=== PATIENT | female | born 1995 | race Caucasian/White ===

== ENCOUNTER 2017-11-29 06:07 | Inpatient (IN) ==
[2017-11-29] MEDS ORDERED: Famotidine 20 MG/2 ML VIAL IVP PRN (06:18)
[2017-11-29] MEDS ORDERED: Naloxone 0.4 MG/ML INJ IVP PRN (06:18)
[2017-11-29] MEDS ORDERED: *HR* Nalbuphine 20 MG/ML AMPUL IVP PRN (06:18)
[2017-11-29] MEDS ORDERED: Metoclopramide 10 MG/2 ML VIAL IVP PRN (06:18)
[2017-11-29] MEDS ORDERED: miSOPROStol 25 MCG TABLET VG PRN (06:20)
--- NOTE | 2017-11-29 06:26 | OB/GYN History & Physical ---
Date of Encounter: 11/29/17 Time of Encounter: 06:45 Assessment and Plan (1) 40 weeks gestation of Current visit: Yes Status: Acute Plan: - admit to L&D for IOL - apply toco, FHR baseline= 130 - obtain CBC, drug screen - Begin induction with Cytotec - anticipate normal - give rhogam after delivery (2) Rh negative status during in third trimester, antepartum Current visit: Yes Status: Acute History of Present Illness Chief complaint: induction of labor HPI: Ms. Lowery is a 22 year old female at 40+3 weeks presented to labor and delivery for induction of labor 2/2 borderline low CARMEN. Patient's is complicated by obesity. Reports active movement. Patient denies vaginal bleeding, contractions, leakage of fluids. Admits to some N/V this morning and vision changes yesterday while cleaning. Denies SNIDER,dysuria. Patient follows up with the midwives and Dr. Diez. PNL: Blood type A-. GBS neg, RI, HBsAG neg, HIV neg. RPR neg. Past Med Surg Social Fam HX - Past Medical History Source: patient, old records reviewed Medical history: no medical history Psychiatric history: no psych history - Past Surgical History Surgical History: other (laproscopic for endometritis, wisdom teeth) - Social History Smoking Status: Never smoker Smokeless Tobacco Status: No Alcohol use: none Drug use: none - Family History Mother Living Status: Still Living Obstetrical History - Pregnancies : 1 Para: 0 Term: 0 : 0 Ab's: 0 Livin - History/Complications History/Complications: n/a Medications and Allergies Kgz313/Iron Fumarate/FA/Dss [ 19 Tablet] 1 tab PO DAILY 11/29/17 [ History] 3 Allergy/AdvReac Type Severity Reaction Status Date / Time No Known Allergies Allergy Verified 11/29/17 06:43 Review of System OB All systems PM: reviewed and no additional remarkable complaints except as stated Exam - Vital Signs Vital signs: BP: 132/77, HR: 88, Temp: 97.7 - Constitutional Constitutional: well developed, well nourished, no acute distress - HEENT HEENT: EOMI - Neck Neck exam: full ROM - Lungs Respiratory exam: CTAB - Cardiovascular Cardiovascular exam: RRR - Abdomen Abdomen: Present: bowel sounds normal, non tender - Extremities Extremities exam: pedal edema (+1) - Vagina Vagina: Present: normal moisture - Cervix Dilation: 2 (per nursing) Effacement: 80 (per nursing) Station: -1 - Uterus Uterus exam: Present: normal size Results Result Diagrams: 11/29/17 06:22 All other labs normal. - VTE Reasons for not Prescribing Prophylaxis: Treatment not Indicated - Low risk for VTE
[2017-11-29 06:39] LABS: Basophils % 0.4 %; Eosinophils # 0.1 K/mcL (0.0-0.6); Eosinophils % 1.2 %; Hematocrit 33.2 % (35.3-44.9); Hemoglobin 10.3 g/dL (11.5-15.4); Immature Granulocytes % 0.6 % (0-4); Lymphocytes # 2.1 K/mcL (0.6-4.6); Lymphocytes % 19.5 %; Mean Corpuscular Hemoglobin 23.3 pg (28.0-33.3); Mean Corpuscular Volume 74.9 fL (83.0-100.0); Mean Platelet Volume 11.3 fL (9.4-12.4); Monocytes # 1.2 K/mcL (0.0-1.3); Monocytes % 11.4 %; Neutrophils # 7.1 K/mcL (1.6-8.9); Platelet Count 290 K/mcL (140-400); Red Blood Count 4.43 M/mcL (3.82-4.97); Red Cell Distribution Width 16.3 % (11.5-14.5); Segmented Neutrophils % 66.9 %
[2017-11-29] MEDS: Ringers Solution, Lactated 1,000 ML IVC SCH ×2 (07:54→15:49)
[2017-11-29 08:11] LABS: Amphetamine Screen,Urine Negative ng/mL (Cutoff=1000); Barbiturate Screen,Urine Negative ng/mL (Cutoff=200); Benzodiazepines Screen,Urine Negative ng/mL (Cutoff=200); Cannabinoid Screen,Urine Negative ng/mL (Cutoff = 50); Cocaine Screen,Urine Negative ng/mL (Cutoff= 300); Opiate Screen,Urine Negative ng/mL (Cutoff=300); Phencyclidine Screen,Urine Negative ng/mL (Cutoff=25)
--- NOTE | 2017-11-29 10:05 | OB Labor Progress Note ---
Date of Encounter: 11/29/17 Time of Encounter: 09:59 Labor Progress Note - Subjective Subjective: Pt resting comfortably. - Cervix Cervix: 1-2/80/-1 - Heart Tones Heart Tones: Category I - Riva Riva: irregular - Interventions Interventions: Gonzalez balloon placed in cervix using sterile technique. Pt tolerated well. Balloon inflated with 30ml sterile water. - Plan Plan: Continue to monitor. Epidural when requested. Anticipate .
[2017-11-29] MEDS ORDERED: Oxytocin 20 units/ LR 1000 mL 20 UNIT/1,000 ML BAG IVC SCH (13:00)
--- NOTE | 2017-11-29 15:44 | OB Labor Progress Note ---
Date of Encounter: 11/29/17 Time of Encounter: 15:42 Labor Progress Note - Subjective Subjective: Pt reports mild discomfort with contractions. - Cervix Cervix: 4-5/80/-1 - Heart Tones Heart Tones: Category I - Zarate Zarate: irregular - Interventions Interventions: AROM performed. No fluid return noted. IUPC and FSE placed successfully. - Plan Plan: Continue to monitor. Allow pt to position for comfort. Anticipate .
[2017-11-29] MEDS ORDERED: 0.9 % Sodium Chloride 1,000 ML ONE (16:24)
--- NOTE | 2017-11-29 17:54 | OB Labor Progress Note ---
Date of Encounter: 11/29/17 Time of Encounter: 17:50 Labor Progress Note - Subjective Subjective: Pt with moderate discomfort with contractions. - Heart Tones Heart Tones: Category II, variable decelerations noted. - [place]: 2-3 minutes - Interventions Interventions: Amnioinfusion started - Plan Plan: Continue amnioinfusion. Plan to restart pitocin once FHT reassuring for 30 minutes. Epidural when requested. Anticipate .
--- NOTE | 2017-11-29 19:06 | OB Labor Progress Note ---
Date of Encounter: 11/29/17 Time of Encounter: 19:04 Labor Progress Note - Subjective Subjective: Pt desires epidural for pain. - Cervix Cervix: 5/80/-1 - Heart Tones Heart Tones: Occassional variabe decels noted. - Sarben Sarben: 3-4 minutes - Plan Plan: Epidural now. Continue to titrate pitocin. Anticipate .
[2017-11-29] MEDS ORDERED: Epidural Premix (fent/bupiv) 110 ML EP SCH (19:15)
[2017-11-29] MEDS ORDERED: Epidural Premix (fent/bupiv) 110 ML EP ONE (19:20)
--- NOTE | 2017-11-29 20:04 | Anesthesia Evaluation PreOp ---
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 Any Significant HX Other Medical History: Denies Any Significant HX Anesthesia History: No Prior Anesthetic Complications : Yes Test: Positive Alcohol Use: none Drug use: none Medications and Allergies Ewd478/Iron Fumarate/FA/Dss [ 19 Tablet] 1 tab PO DAILY 11/29/17 [ History] 3 Allergy/AdvReac Type Severity Reaction Status Date / Time No Known Allergies Allergy Verified 11/29/17 06:43 - Meds/Allergy Pre-op Review Medications Reviewed: Yes Allergies Reviewed: Yes Beta Blockers on Current Med List: No Anesthesia Results - Labs 11/29/17 06:22 Anesthesia Exam Height: 63 Weight: 188LBS Pain Scale: 6 - HEENT Pupil (Motor): Pupils equal Mallampati: II Teeth: Normal Oral Opening: Greater than 3 - 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
--- NOTE | 2017-11-29 20:07 | Anesthesia Procedures ---
Date of Encounter: 11/29/17 Time of Encounter: 19:37 Procedures: Anesthesia - Epidural/Spinal Patient ID/Chart reviewed: Yes Patient examined: Yes OB Eval: : 1 OB Eval: Hx Para: 0 OB Eval: Dilated at (cm): 5 OB Eval: Contractions: Non-stressed pattern Consent Obtained: Yes Supplemental Oxygen: None/Room Air Site Prep: Aseptic Technique, Sterile prep and drape, Povidone-Iodine 1% Patient position: upright Amount of Local Anesthetic used: 3 Touhy Needle Gauge: 18 Touhy Needle Depth (cm): 7 Catheter Depth at Skin (cm): 12 Test Dose (1.5% Lido + Epi): Volume given (mls): 3 Test Dose Result: Negative Loading Dose: Other: 10ml Loading Dose Administered: Thru Catheter Infusion Med: 0.125% Bupivacaine w/ 2 mcg/ml Fentanyl Infusion Rate (mls/hr): [address]: Tegaderm, Tape Interspace Used: L4-L5 Loss of Resistance (DEBORAH): Yes Blood: No CSF: No Paresthesia: No Vitals + FHT's: stable throughout see nursing notes
[2017-11-29] MEDS ORDERED: ROPIVACAINE HCL/PF 0.5% 30 ML VIAL ONE (22:17)
[2017-11-29] MEDS ORDERED: EPHEDrine 50 MG/ML VIAL ONE (23:06)
[2017-11-30] MEDS ORDERED: Ondansetron 4 MG/2 ML VIAL ONE (00:24)
[2017-11-30] MEDS ORDERED: Ondansetron 4 MG/2 ML VIAL IVP PRN (00:24)
[2017-11-30] MEDS ORDERED: Epidural Premix (fent/bupiv) 110 ML EP ONE (02:35)
--- NOTE | 2017-11-30 03:44 | OB/GYN Procedure Note ---
Delivery - Delivery Date: 11/30/17 Provider: Marianne Nuñez Intrapartum events: meconium (terminal meconium) Delivery induction: trevino, misoprostol Delivery augmentation: rupture of membranes, pitocin Delivery monitor: internal FHT, internal uterine Anesthesia: epidural Estimated Blood Loss: 50 - Infant (s) A Infant Delivery Date: 11/30/17 Infant Delivery Time: 03:13 Presentation: vertex Position: ASHLEY Route of delivery: Gender: Male Pounds: 7 Ounces: 2 Weight Gram: 3.24 kg at 1 minute: 8 at 5 mins: 9 Shoulder Dystocia: not encountered Specimens collected: cord blood Placenta: spontaneous Cord: 3 umbilical vessels - Repair Episiotomy: none Laceration Description: None - Complications Delivery complications: meconium (terminal) Delivery comments: Pt progressed to complete dilation. She pushed intermittently due to FHT decelerations with pushing. Dr. James called due to decelerations. She pushed effectively to over intact perineum for viable male "Katy" weighing 7lbs 2 oz with apgars 8 at one minute and 9 at five minutes. After pulsations ceased the cord was clamped and cut and the placenta delivered spontaneous and intact. Meconium was noted at the time of delivery. No nuchal and no shoulder dystocia. Dr. James was in attendance for procedure. No repair needed. EBL 50ml. Mother and baby stable in kangaroo care following delivery. - Disposition Mom disposition: stable in LDR [place] disposition: stable in LDR
[2017-11-30] MEDS ORDERED: Acetaminophen 325 MG TABLET PO PRN (05:42)
[2017-11-30] MEDS ORDERED: Oxytocin 20 units/ LR 1000 mL 20 UNIT/1,000 ML BAG IVC SCH (05:42)
[2017-11-30] MEDS ORDERED: Lanolin 7 G OINT...G. TP PRN (05:42)
[2017-11-30] MEDS ORDERED: Rho Immune Globulin 1,500 UNIT SYRINGE IM PRN (05:42)
[2017-11-30] MEDS ORDERED: Measles/Mumps/Rubella Vacc 0.5 ML VIAL SQ PRN (05:42)
[2017-11-30] MEDS ORDERED: Benzocaine/Menthol 56 GM AEROSOL SPRAY TP PRN (05:42)
[2017-11-30] MEDS: Ibuprofen 600 MG TABLET PO PRN ×2 (07:16→19:27)
[2017-11-30] MEDS: Prenatal Vit/FA 1 EACH TABLET PO SCH (08:13)
[2017-12-01] MEDS: Ibuprofen 600 MG TABLET PO PRN (06:42)
[2017-12-01] MEDS: Prenatal Vit/FA 1 EACH TABLET PO SCH (07:52)
[2017-12-01 08:07] VITALS: BP 101/66
--- NOTE | 2017-12-01 08:56 | Discharge Summary ---
Date of Encounter: 12/01/17 Time of Encounter: 08:53 - Discharge Diagnosis (1) Rh negative status during in third trimester, antepartum Priority: Secondary Status: Acute (2) Vaginal delivery Priority: Primary Status: Acute Comments: Pt meeting all milestones. She reports some mild uterine cramping. No other complaints. - Discharge Medications Prescriptions: Ibuprofen [Motrin] 600 mg PO Q6HR PRN #30 tablet PRN Reason: Cramping Breast Pump [BREAST PUMP] 1 each .ROUTE AD #1 each Docusate [Colace] 100 mg PO BID #30 capsule Home Medications: Dyg301/Iron Fumarate/FA/Dss [ 19 Tablet] 1 tab PO DAILY 11/29/17 [ History] Benzocaine/Menthol [place] [Dermoplast [place]] 1 appl TP QID PRN aerosol 12/01/17 [Rx] Breast Pump [BREAST PUMP] 1 each .ROUTE AD #1 each 12/01/17 [Rx] Docusate [Colace] 100 mg PO BID #30 capsule 12/01/17 [Rx] Ibuprofen [Motrin] 600 mg PO Q6HR PRN #30 tablet 12/01/17 [Rx] Lanolin [Lansinoh] 1 appl TP Q4HR PRN oint...g. 12/01/17 [Rx] Allergies/Adverse Reactions: 3 Allergy/AdvReac Type Severity Reaction Status Date / Time No Known Allergies Allergy Verified 11/29/17 06:43 Data Procedures and tests throughout hospitalization: Laboratory Tests 11/29/17 11/29/17 11/30/17 06:22 06:22 03:54 WBC 10.7 RBC 4.43 Hgb 10.3 L Hct 33.2 L MCV 74.9 L MCH 23.3 L MCHC 31.0 L RDW 16.3 H Plt Count 290 MPV 11.3 Immature Gran % 0.6 Seg Neutrophils % 66.9 Lymphocytes % 19.5 Monocytes % 11.4 Eosinophils % 1.2 Basophils % 0.4 Neutrophils # 7.1 Lymphocytes # 2.1 Monocytes # 1.2 Eosinophils # 0.1 Basophils # 0.0 Urine Opiates Screen Negative Ur Barbiturates Screen Negative Ur Phencyclidine Scrn Negative Ur Amphetamines Screen Negative U Benzodiazepines Scrn Negative Urine Cocaine Screen Negative U Marijuana (THC) Screen Negative Screen NEGATIVE Baby's Blood Type A RH POSITIVE Mother's Blood Type A RH NEGATIVE Rhogam Indicated YES Rhogam Req for Mother 1 Labs on day of discharge: Labs from last 24 hours 11/30/17 03:54 Screen NEGATIVE Baby's Blood Type A RH POSITIVE Mother's Blood Type A RH NEGATIVE Rhogam Indicated YES Rhogam Req for Mother 1 Date of admission: 11/29/17 06:07 Primary care physician: Mikki Lopez CNP Consults: 11/30/17 05:42 Consult to Sap Bpc Architect [CONS] Routine Comment: Vaginal delivery, consult needed Discharging clinician: Marianne Nuñez Anticipated date of discharge: 12/01/17 - Patient Status Disposition: Home, Self-Care Condition: Good Functional capacity at discharge: independent ambulation Overall status at discharge: patient is progressing back to baseline - Discharge Instructions Follow Up With: Mikki Lopez CNP [Primary Care Provider] - Marianne Nuñez CNM [Non-Partnered Physician] - - Diet and Activity Activity: increase activity as tolerated Diet: regular diet Hospital Course Reason for admission: induction of labor Delivery: Episiotomy: none Laceration: none Other procedures: none complications: none Discharge diagnosis: IUP at term delivered [place] baby: male Hospital course: - Delivery Date: 11/30/17 Provider: Marianne Nuñez Intrapartum events: meconium (terminal meconium) Delivery induction: trevino, misoprostol Delivery augmentation: rupture of membranes, pitocin Delivery monitor: internal FHT, internal uterine Anesthesia: epidural Estimated Blood Loss: 50 - Infant (s) Infant A Infant Delivery Date: 11/30/17 Infant Delivery Time: 03:13 Presentation: vertex Position: ASHLEY Route of delivery: Gender: Male Pounds: 7 Ounces: 2 Weight Gram: 3.24 kg at 1 minute: 8 at 5 mins: 9 Shoulder Dystocia: not encountered Specimens collected: cord blood Placenta: spontaneous Cord: 3 umbilical vessels - Repair Episiotomy: none Laceration Description: None - Complications Delivery complications: category II tracing, meconium (terminal) - Disposition Mom disposition: home PPD#1 [place] disposition: home with mother, Time Attestation: Total time spent providing and/or coordinating discharge services: Time Spent: Less than 30 minutes Exam - Constitutional Vitals: Temp Pulse Resp BP Pulse Ox 98.0 F 74 16 101/66 97 12/01/17 07:45 12/01/17 07:45 12/01/17 07:45 12/01/17 07:45 12/01/17 07:45 General appearance IM: A&O X 3 - Respiratory Respiratory exam: Present: CTAB - Cardiovascular Cardiovascular exam IM: Present: RRR - GI/Abdominal GI/Abdominal exam IM: soft - Rectal Rectal exam: deferred - Uterine Tone: Firm Uterus Position: 1 Finger Below Umbilicus - Extremities Exam Extremities exam IM: Present: normal inspection, pedal edema (2+ bilaterally, no erythema or warmth) - Neurological Exam Neurological exam: normal gait, oriented X3 - Psychiatric Additional comments: reports good mood, desires a Mirena for contraception at visit
== END 2017-12-01 13:30 | disposition home or self-care (01) | DRG 775 ==
LOC: 1NENULAB 06:07 → 1NENUOBS 11-30 05:38
PROVIDERS: ADMIT Advanced Practice Midwife; ATTEND Advanced Practice Midwife

== ENCOUNTER 2020-08-24 05:52 | Inpatient (IN) ==
[2020-08-24] MEDS ORDERED: Azithromycin 500 MG in 0.9 % Sodium Chloride 250 ML IVPB ONE (05:54)
[2020-08-24] MEDS ORDERED: *HR* FentaNYL (PF) 100 MCG/2 ML VIAL IVP PRN (05:54)
[2020-08-24] MEDS ORDERED: Famotidine 20 MG/2 ML VIAL IVP PRN (05:54)
[2020-08-24] MEDS ORDERED: Naloxone 0.4 MG/ML INJ IVP PRN (05:54)
[2020-08-24] MEDS ORDERED: Lidocaine 1% 20 ML MDV INFILT PRN (05:54)
[2020-08-24] MEDS ORDERED: Ondansetron 4 MG/2 ML VIAL IVP PRN (05:54)
[2020-08-24] MEDS ORDERED: Metoclopramide 10 MG/2 ML VIAL IVP PRN (05:54)
[2020-08-24] MEDS: Ringers Solution, Lactated 1,000 ML IVC SCH ×2 (06:25→17:26)
[2020-08-24] MEDS: miSOPROStoL 25 MCG TABLET PO PRN ×2 (06:25→10:43)
[2020-08-24 06:26] LABS: Basophils % 0.4 %; Eosinophils # 0.1 K/mcL (0.0-0.6); Eosinophils % 1.3 %; Hematocrit 39.8 % (35.3-44.9); Immature Granulocytes % 0.5 % (0-4); Lymphocytes % 20.6 %; Mean Corpuscular HGB Conc 32.7 g/dL (31.6-35.5); Mean Corpuscular Hemoglobin 27.9 pg (28.0-33.3); Mean Corpuscular Volume 85.4 fL (83.0-100.0); Mean Platelet Volume 10.7 fL (9.4-12.4); Monocytes # 0.8 K/mcL (0.0-1.3); Monocytes % 8.2 %; Neutrophils # 6.7 K/mcL (1.6-8.9); Platelet Count 234 K/mcL (140-400); Red Blood Count 4.66 M/mcL (3.82-4.97); Red Cell Distribution Width 14.6 % (11.5-14.5); White Blood Count 9.7 K/mcL (4.3-11.1)
[2020-08-24 09:20] LABS: Amphetamine Screen,Urine Negative ng/mL (Cutoff=1000); Barbiturate Screen,Urine Negative ng/mL (Cutoff=200); Benzodiazepines Screen,Urine Negative ng/mL (Cutoff=200); Cannabinoid Screen,Urine Negative ng/mL (Cutoff = 50); Cocaine Screen,Urine Negative ng/mL (Cutoff= 300); Opiate Screen,Urine Negative ng/mL (Cutoff=300); Phencyclidine Screen,Urine Negative ng/mL (Cutoff=25)
[2020-08-24] MEDS ORDERED: EPHEDrine 50 MG/ML VIAL IVP PRN (10:10)
[2020-08-24] MEDS ORDERED: Bupivacaine-MPF 0.25% 10 ML VIAL EP ONE (10:10)
[2020-08-24] MEDS ORDERED: *HR* FentaNYL (PF) 100 MCG/2 ML VIAL EP ONE (10:10)
[2020-08-24] MEDS ORDERED: Epidural Premix (fent/bupiv) 110 ML EP SCH (10:15)
[2020-08-24] MEDS ORDERED: Bupivacaine-MPF 0.25% 10 ML VIAL ONE (10:21)
[2020-08-24] MEDS ORDERED: *HR* FentaNYL (PF) 100 MCG/2 ML VIAL ONE (10:21)
[2020-08-24] MEDS ORDERED: Oxytocin 20 units/ LR 1000 mL 20 UNIT/1,000 ML BAG IVC SCH ×2 (14:30→21:30)
[2020-08-24] MEDS ORDERED: Benzocaine/Menthol 56 GM AEROSOL SPRAY TP PRN (21:30)
[2020-08-24] MEDS ORDERED: Acetaminophen 325 MG TABLET PO PRN (21:30)
[2020-08-24] MEDS ORDERED: Rho Immune Globulin 1,500 UNIT SYRINGE IM PRN (21:30)
[2020-08-24] MEDS ORDERED: Lanolin 7 G OINT...G. TP PRN (21:30)
[2020-08-25] MEDS: Ibuprofen 600 MG TABLET PO PRN ×3 (02:54→15:03)
[2020-08-25] MEDS ORDERED: Prenatal Vit/FA 1 EACH TABLET PO SCH (09:00)
[2020-08-25 16:02] VITALS: BP 108/72
== END 2020-08-25 20:05 | disposition home or self-care (01) | DRG 807 ==
LOC: 1NENULAB 05:52 → 1NENUOBS 21:29
PROVIDERS: ADMIT Registered Nurse; ATTEND Registered Nurse